=== PATIENT | male | born 1960 | race American Indian/Alaskan Native ===

== ENCOUNTER 2021-11-06 23:17 | Emergency (ER) | payer OTHER ==
[2021-11-06] MEDS ORDERED: SODIUM CHLORIDE 0.9% 1000 ML 1,000 ML IV ONE ×2 (23:51)
[2021-11-06] MEDS ORDERED: fentaNYL 100 MCG/2 ML INJ IV ONE (23:53)
[2021-11-06] MEDS ORDERED: ONDANSETRON 4 MG/2 ML INJ IV ONE (23:53)
--- NOTE | 2021-11-06 23:56 | Emergency Department Report ---
HPI - General Chief Complaint: GI Bleed Time Seen by Provider: 11/06/21 23:45 - HPI HPI: Room 18 The patient is a 61-year-old male present with chief complaint of rectal bleeding. The patient states he initially started having rectal bleeding approximate 6 weeks ago and went to his primary physician. Patient states he was scheduled for colonoscopy has not had it yet. Patient states over the past 2 weeks he has had heavier "pulls" of bright red blood per rectum as well as clots. Tonight the patient states he developed sharp lower abdominal pain which he gives a score of "11/10." ED Past Medical Hx - Past Medical History Previous Medical History?: No - Surgical History Past Surgical History?: No Hx Appendectomy: Yes - Family History Family history: no significant - Social History Smoking Status: Never Smoker Substance Use Type: None (Denies illicit drug use), Alcohol (Occasional) - Medications Home Medications: Home Medications Medication Instructions Recorded Confirmed Last Taken Type Famotidine [Pepcid] 20 mg PO BID #30 tablet 11/07/21 Unknown Rx Promethazine [Phenergan] 25 mg PO Q6HR PRN #20 tab 11/07/21 Unknown Rx Promethazine [Phenergan] 25 mg SD Q6HR PRN #5 supp.rect 11/07/21 Unknown Rx traMADoL [Ultram] 50 mg PO Q6HR PRN #14 tablet 11/07/21 Unknown Rx ED Review of Systems ROS: Stated complaint: RECTUM BLEED/SOB Other details as noted in HPI Constitutional: weakness Eyes: denies: eye pain ENT: denies: throat pain Respiratory: no symptoms reported Cardiovascular: denies: chest pain Endocrine: no symptoms reported Gastrointestinal: abdominal pain, nausea. denies: vomiting Genitourinary: denies: dysuria Musculoskeletal: denies: back pain Neurological: denies: headache Physical Exam - Physical Exam Vital Signs: Vital Signs 11/06/21 23:28 Temperature 98.2 F Pulse Rate 118 H Respiratory 18 Rate Blood Pressure 156/105 O2 Sat by Pulse 91 Oximetry Physical Exam: GENERAL: The patient is well-developed well-nourished male lying on stretcher appearing to be in mild HEENT: Normocephalic. Atraumatic. Extraocular motions are intact. Patient has moist mucous membranes. NECK: Supple. Trachea midline CHEST/LUNGS: Clear to auscultation. There is no respiratory distress noted. HEART/CARDIOVASCULAR: Regular. There is tachycardia. There is no gallop rub or murmur. ABDOMEN: Abdomen is soft, nontender. Patient has normal bowel sounds. There is no abdominal distention. SKIN: There is no rash. There is no edema. There is no diaphoresis. NEURO: The patient is awake, alert, and oriented. The patient is cooperative. The patient has no focal neurologic deficits. The patient has normal speech. GCS 15 MUSCULOSKELETAL: There is no evidence of acute injury. RECTAL: ED Course Vital Signs 11/06/21 23:28 Temperature 98.2 F Pulse Rate 118 H Respiratory 18 Rate Blood Pressure 156/105 O2 Sat by Pulse 91 Oximetry Vital Signs 11/06/21 11/06/21 11/06/21 23:28 23:42 23:45 Temperature 98.2 F Pulse Rate 118 H 115 H Respiratory 18 19 Rate Blood Pressure 156/105 156/99 O2 Sat by Pulse 91 98 98 Oximetry 11/07/21 11/07/21 11/07/21 00:01 00:15 00:31 Temperature Pulse Rate 108 H 111 H Respiratory 17 21 Rate Blood Pressure 172/117 158/111 148/108 O2 Sat by Pulse 98 97 98 Oximetry 11/07/21 11/07/21 11/07/21 00:45 01:01 01:15 Temperature Pulse Rate 97 H 94 H 102 H Respiratory 15 16 17 Rate Blood Pressure 165/104 150/98 153/95 O2 Sat by Pulse 97 98 98 Oximetry 11/07/21 11/07/21 11/07/21 01:31 01:45 02:00 Temperature Pulse Rate 96 H 98 H 99 H Respiratory 17 18 18 Rate Blood Pressure 163/107 152/98 152/98 O2 Sat by Pulse 98 97 97 Oximetry 11/07/21 11/07/21 04:05 04:15 Temperature Pulse Rate 104 H 97 H Respiratory 20 18 Rate Blood Pressure 139/97 O2 Sat by Pulse 98 98 Oximetry - Consultations Consultation #1: 11/07/21 Case briefly discussed with machine washer Dr. Krishnan ED Medical Decision Making - Lab Data Result diagrams: 11/07/21 00:12 11/07/21 00:12 Laboratory Tests 11/07/21 11/07/21 11/07/21 00:12 00:12 00:12 WBC 9.0 RBC 5.47 H Hgb 15.4 H Hct 46.2 H MCV 85 MCH 28 MCHC 33 RDW 15.1 Plt Count 288 Lymph % (Auto) 20.2 [place] % (Auto) 8.8 H Eos % (Auto) 0.3 Baso % (Auto) 0.5 Lymph # (Auto) 1.8 [place] # (Auto) 0.8 Eos # (Auto) 0.0 Baso # (Auto) 0.0 Seg Neutrophils % 70.2 H Seg Neutrophils # 6.3 PT 13.1 INR 0.90 APTT 33.8 Sodium 137 Potassium 3.5 L Chloride 97.0 L Carbon Dioxide 24 Anion Gap 20 BUN 10 Creatinine 1.1 Estimated GFR > 60 BUN/Creatinine Ratio 9 Glucose 94 Calcium 9.8 Total Bilirubin 1.20 AST 27 ALT 22 Alkaline Phosphatase 87 Total Protein 7.9 Albumin 4.6 Albumin/Globulin Ratio 1.4 Lipase 24 Blood Type Antibody Screen 11/07/21 00:12 WBC RBC Hgb Hct MCV MCH MCHC RDW Plt Count Lymph % (Auto) [place] % (Auto) Eos % (Auto) Baso % (Auto) Lymph # (Auto) [place] # (Auto) Eos # (Auto) Baso # (Auto) Seg Neutrophils % Seg Neutrophils # PT INR APTT Sodium Potassium Chloride Carbon Dioxide Anion Gap BUN Creatinine Estimated GFR BUN/Creatinine Ratio Glucose Calcium Total Bilirubin AST ALT Alkaline Phosphatase Total Protein Albumin Albumin/Globulin Ratio Lipase Blood Type O POSITIVE Antibody Screen Negative - Radiology Data Radiology results: report reviewed (CTA abdomen pelvis), image reviewed (CTA abdomen pelvis) [facility] [address] [place] [address] Cat Scan Report Signed Patient: MARCELO ORTIZ MR#: [id number] 4 : 1960 Acct:[id number] Age/Sex: 61 / M ADM Date: 11/06/21 Loc: ED Attending Dr: Ordering Physician: BLUE RENTERIA MD Date of Service: 11/07/21 Procedure(s): CT angio abdomen pelvis Accession Number(s): [id number] cc: BLUE RENTERIA MD CTA ABDOMEN AND PELVIS WITHOUT AND WITH IV CONTRAST INDICATION: Lower abdominal pain, hematochezia. TECHNIQUE: Axial CT images were obtained through the abdomen and pelvis before and after after injection of IV contrast. 3 plane MIP reconstructions were produced. All CT scans at this location are performed using CT dose reduction for ALARA by means of automated exposure control. COMPARISON: None available. FINDINGS: Aorta: No acute abnormality. Renal arteries: No acute abnormality. Celiac artery: No acute abnormality. Superior mesenteric artery: No acute abnormality. Inferior mesenteric artery: No acute abnormality. Right iliac arteries: No acute abnormality. Left iliac arteries: No acute abnormality. LOWER CHEST: Mild linear bibasilar atelectasis LIVER: No significant abnormal ity. GALLBLADDER: No significant abnormality. BILE DUCTS: No significant abnormality. PANCREAS: No significant abnormality. SPLEEN: No significant abnormality. ADRENALS: No significant abnormality. RIGHT KIDNEY and URETER: No significant abnormality. LEFT KIDNEY and URETER: No significant abnormality. STOMACH and SMALL BOWEL: No significant abnormality. COLON: No significant abnormality. APPENDIX: No significant abnormality. PERITONEUM: No free fluid. No free air. No fluid collection. LYMPH NODES: No significant adenopathy. AORTA and ARTERIES: No significant abnormality. IVC and VEINS: No significant abnormality. URINARY BLADDER: No significant abnormality. REPRODUCTIVE ORGANS: No significant abnormality. ADDITIONAL FINDINGS: None. SKELETAL SYSTEM: No significant abnormality. IMPRESSION: 1. No acute findings. No CT evidence for active GI bleeding Signer Name: Oj Brower MD Signed: 11/07/2021 3:08 AM Workstation Name: [id number] Transcribed By: TL Dictated By: Oj Brower MD Electronically Authenticated By: Oj Brower MD Signed Date/Time: 11/07/21307 DD/ 6 TD/TT: - Differential Diagnosis GI bleed, hemorrhoids, pancreatitis, gastritis Critical care attestation.: If time is entered above; I have spent that time in minutes in the direct care of this critically ill patient, excluding procedure time. ED Disposition Clinical Impression: Acute abdominal pain, Nausea & vomiting Disposition: 01 HOME / SELF CARE / HOMELESS Is pt being admited?: No Does the pt Need Aspirin: No Condition: Stable Instructions: Nausea and Vomiting, Adult, Abdominal Pain, Adult, [id number] Additional Instructions: Return to the emergency department should you develop worsening symptoms, inability to tolerate food or liquids, high fever or any other concerns Prescriptions: Famotidine [Pepcid] 20 mg PO BID #30 tablet Promethazine [Phenergan] 25 mg PO Q6HR PRN #20 tab PRN Reason: Nausea Promethazine [Phenergan] 25 mg SD Q6HR PRN #5 supp.rect PRN Reason: Vomiting traMADoL [Ultram] 50 mg PO Q6HR PRN #14 tablet PRN Reason: Pain Referrals: MARY PUCKETT [Primary Care Provider] - 3-5 Days REMEDIOS KRISHNAN MD [Staff Physician] - 3-5 Days (Dr. Krishnan is a machine washer. Please follow-up with him or your own machine washer for further evaluate) Forms: Accompanied Note Time of Disposition: 04:28
[2021-11-07 00:35] LABS: Basophils % (Auto) 0.5 % (0.0-1.8); Eosinophils % (Auto) 0.3 % (0.0-4.3); Hematocrit 46.2 % (35.5-45.6); Hemoglobin 15.4 gm/dl (11.8-15.2); Lymphocytes # (Auto) 1.8 K/mm3 (1.2-5.4); Lymphocytes % (Auto) 20.2 % (13.4-35.0); Mean Corpuscular HGB Conc 33 % (32-34); Mean Corpuscular Volume 85 fl (84-94); Monocytes # (Auto) 0.8 K/mm3 (0.0-0.8); Monocytes % (Auto) 8.8 % (0.0-7.3); Platelet Count 288 K/mm3 (140-440); Red Blood Count 5.47 M/mm3 (3.65-5.03); Red Cell Distribution Width 15.1 % (13.2-15.2)
[2021-11-07 00:45] LABS: INR 0.9 (0.87-1.13)
[2021-11-07 00:46] LABS: Partial Thromboplastin Time 33.8 Sec. (24.2-36.6)
[2021-11-07 01:08] LABS: Alanine Aminotransferase 22 units/L (7-56); Albumin 4.6 g/dL (3.9-5); BUN/Creatinine Ratio 9; Blood Urea Nitrogen 10 mg/dL (9-20); Calcium 9.8 mg/dL (8.4-10.2); Hemolysis Index 10
--- NOTE | 2021-11-07 03:12 | Cat Scan Report ---
CTA ABDOMEN AND PELVIS WITHOUT AND WITH IV CONTRAST INDICATION: Lower abdominal pain, hematochezia. TECHNIQUE: Axial CT images were obtained through the abdomen and pelvis before and after after injection of IV c ontrast. 3 plane MIP reconstructions were produced. All CT scans at this location are performed using CT dose reduction for ALARA by means of automated exposure control. COMPARISON: None available. FINDINGS: Aorta: No acute abnormality. Renal arteries: No acute abnormality. Celiac artery: No acute abnormality. Superior mesenteric artery: No acute abnormality. Inferior mesenteric artery: No acute abnormality. Right iliac arteries: No acute abnormality. Left iliac arteries: No acute abnormality. LOWER CHEST: Mild linear bibasilar atelectasis LIVER: No significant abnormality. GALLBLADDER: No significant abnormality. BILE DUCTS: No significant abnormality. PANCREAS: No significant abnormality. SPLEEN: No significant abnormality. ADRENALS: No significant abnormality. RIGHT KIDNEY and URETER: No significant abnormality. LEFT KIDNEY and URETER: No significant abnormality. STOMACH and SMALL BOWEL: No significant abnormality. COLON: No significant abnormality. APPENDIX: No significant abnormality. PERITONEUM: No free fluid. No free air. No fluid collection. LYMPH NODES: No significant adenopathy. AORTA and ARTERIES: No significant abnormality. IVC and VEINS: No significant abnormality. URINARY BLADDER: No significant abnormality. REPRODUCTIVE ORGANS: No significant abnormality. ADDITIONAL FINDINGS: None. SKELETAL SYSTEM: No significant abnormality. IMPRESSION: 1. No acute findings. No CT evidence for active GI bleeding Signer Name: Oj Brower MD Signed: 11/07/2021 3:08 AM Workstation Name: [id number]
[2021-11-07 04:51] VITALS: BP 174/111
== END 2021-11-07 04:51 | disposition home or self-care (01) ==
LOC: ED 23:17
DX: R10.9 Unspecified abdominal pain (principal); R11.2 Nausea with vomiting, unspecified; F10.20 Alcohol dependence, uncomplicated
CPT/HCPCS: 36415; 74174; 74175; 80053; 82270; 83690; 85025; 85610; 85730; 86850; 86900; 86901; 93005; 96361; 96374; 96375; 99284; J2405; J3010; J7030; Q9967